=== PATIENT | female | born 1945 | race Caucasian/White ===

== ENCOUNTER 2025-02-18 16:39 | Emergency (ER) | payer MEDICARE, BC, SELFPAY ==
[2025-02-18] VITALS (16 sets, daily range): BP systolic 118–143; BP diastolic 61–75; PULSE 64–85; RESP 6–19; TEMP 36.1; O2SAT 91–99; BMI 22.7
--- OUTSIDE RECORDS SUMMARY | 2025-02-18 16:41 | XMS_ITS | Clinical Summary ---
Author Organization [facility] Address [address] [place] [address] Care Team Providers Care Urban Gardening Specialist Name Role Phone Mercedes Waller MD Primary Care Provider [phone] Allergies Active Allergy Reactions Criticality Noted Date Comments Fluticasone-Salmeterol Cough Fluticasone-Salmeterol Other (See Comments) 06/2010 No reaction listed in [employer]ner. Risedronate 09/10/2015 Other reaction(s): Other (see comments) No reaction listed in [employer]ner. Salmeterol 01/22/2010 Other reaction(s): Other (see comments) No reaction listed in [employer]ner. Serevent Cough Sulfa Antibiotics 08/20/2009 Other reaction(s): Headache Medications methylphenidate ER (CONCERTA) 18 MG CR tablet 12/12/2012 Act jas fluticasone (VERAMYST) 27.5 MCG/SPRAY spray 08/14/2013 Act jas methylphenidate (RITALIN) 10 MG tablet 12/12/2012 Active levothyroxine (SYNTHROID) 75 MCG tablet 02/12/2016 Active budesonide (PULMICORT FLEXHALER) 180 MCG/ACT inhaler Inhale 2 puffs into the lungs 11/02/2017 Active buPROPion (WELLBUTRIN SR) 100 MG 12 hr tablet Take 100 mg by mouth 11/02/2017 Active Cholecalciferol (VITAMIN D) 2000 units tablet Take 1 tablet by mouth 02/17/2010 Active fluticasone (FLONASE) 50 MCG/ACT spray [place] 1 spray in nostril 11/02/2017 Active melatonin 5 MG tablet Take 1 tablet by mouth 11/01/2016 Active methylphenidate (RITALIN LA) 20 MG CP24 Take 20 mg by mouth 11/02/2017 Active Calcium Carbonate-Vitam in D (CALCIUM 500 + D PO) Active Active Problems Problem Noted Date Diagnosed Date Hypothyroidism 11/04/2017 Hyperlipidemia 11/04/2017 Mass of breast 08/24/2012 Overview (01/29/2018): bx with fat necrosis Gastro-esophageal reflux disease without esophag itis 06/18/2012 Overactive child 06/11/2011 Overview (01/29/2018): Overview: ADHD Asthma 06/09/2011 Overview (01/29/2018): Overview: Asthma, Unspecified Postnasal drip 06/09/2011 Family History Medical History Relation Comments Arrhythmia Father Cerebrovascular Disease Father Dementia Father Heart Failure Father Depression Mother Coronary Artery Disease Paternal Grandfather Relation Status Comments Father Mother Paternal Grandfather Social History Tobacco Use Types Packs/Day Years Used Date Smoking Tobacco: Never Smokeless Tobacco: Never Comments Unknown Sex and Gender Information Value Date Recorded Sex Assigned at Not on file 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 Gender Identity Not on file Sexual Orientation Not on file Last Filed Vital Signs Vital Sign Reading Time Taken Comments Blood Pressure 124/76 01/29/2018 2:04 PM CDT Pulse 61 01/29/2018 2:04 PM CDT Temperature - - Respiratory Rate 16 01/29/2018 2:04 PM CDT Oxygen Saturation 95% 01/29/2018 2:04 PM CDT ra Inhaled Oxygen Concentration - - Weight - - Height - - Body Mass Index - - Plan of Treatment Upcoming Encounters Date Type Department Care Team (Late st Contact Info) Description 02/24/2025 1:45 PM CDT Ancillary Procedure [facility] [address] [place] [address] Non- Credentialed Provider, Radiology Health Maintenance Due Date Last Done Comments ADVANCE CARE PLANNING 1945 ANNUAL REVIEW OF HM ORDERS 1945 DIABETES SCREENING 1945 LIPID 1945 TSH W/FREE T4 REFLEX 1945 HEPATITIS C SCREENING 10/28/1963 FALL RISK ASSESSMENT 2010 ZOSTER VACCINE (2 of 3) 08/04/2011 06/09/2011 DEXA 08/16/2019 08/16/2004 RSV VACCINE (1 - 1-dose 75+ series) 2020 COVID-19 VACCINE (5 - season) 2024 07/11/2023, 06/11/2021, 11/03/2020, Additional history exists PHQ-2 (once per calendar year) 2024 DTAP/TDAP/TD VACCINE (2 - Td or Tdap) 11/12/2024 11/12/2014, 11/17/2004 INFLUENZA VACCINE (#1) 2025 PNEUMOCOCCAL VACCINE 50+ YEARS Completed 04/09/2015, 06/18/2012 MAMMO SCREENING Discontinued 11/27/2018, 10/13, 03/18/2016, Additional history exists HPV VACCINE Aged Out No longer eligi ble based on patient's age to complete this topic MENINGITIS VACCINE Aged Out No longer eligible based on patient's age to complete this topic Procedures Procedure Name Priority Date/Time Associated Diagnosis Comments MA SCREENING BILATERAL W/ TRAVIS Routine 11/27/2018 3:36 PM CDT Screening breast examination C DEXA, BONE DENSITY, AXIAL SKEL Routine 08/16/2004 1:12 PM HAND CROWN POUNCER from Last 3 Months or Most Recently Relevant to Health Maintenance Results * MA Screen Bilateral w/Travis (11/27/2018 3:36 PM CDT) Anatomical Region Laterality Modality Breast Bilateral Mammography Impressions 11/28/2018 4:27 PM CDT IMPRESSION: BI-RADS CATEGORY: 1 - NEGATIVE. RECOMMENDED FOLLOW-UP: Annual Mammography Results to be sent to the patient. I have personally reviewed the examination and initial interpretation and I agree with the findings. GISELA FERNANDES MD Narrative 11/28/2018 4:27 PM CDT Examination: Bilateral digital screening mammography and bilateral digital tomosynthesis with computer aided detection. Comparison: 11/02/2017, 03/18/2016, 08/18/2014, 04/23/2012, and 92,011. History/family history: No symptoms, routine screening. Patient's grandmother diagnosed with breast cancer age 50. Prior left breast biopsy. TECHNIQUE: Tomosynthesis BREAST DENSITY: Scattered fibroglandular densities. COMMENTS: No significant change. Left breast biopsy clip. Procedure Note Gisela Fernandes MD - 11/28/2018 Examination: Bilateral digital screening mammography and bilateral digital tomosynthesis with computer aided detection. Comparison: 11/02/2017, 03/18/2016, 08/18/2014, 04/23/2012, and 92,011. History/family history: No symptoms, routine screening. Patient's grandmother diagnosed with breast cancer age 50. Prior left breast biopsy. TECHNIQUE: Tomosynthesis BREAST DENSITY: Scattered fibroglandular densities. COMMENTS: No significant change. Left breast biopsy clip. IMPRESSION: BI-RADS CATEGORY: 1 - NEGATIVE. RECOMMENDED FOLLOW-UP: Annual Mammography Results to be sent to the patient. I have personally reviewed the examination and initial interpretation and I agree with the findings. GISELA FERNANDES MD [facility] IMG MAMMOGRAPHY ORDERABLES Final Result * DEXA, BONE DENSITY, AXIAL SKEL (08/16/2004 1:12 PM HAND CROWN POUNCER) Anatomical Region Laterality Modality Other 08/16/2004 1:12 PM HAND CROWN POUNCER Impressions 08/21/2004 8:26 PM HAND CROWN POUNCER copy of actual paper images and tabulated data to be forwarded to Dr. Horton , along with this dictated report. BONE DENSITOMETRY REPORT(See PACS viewer for DXA images and tabulated data). Densitometer make and model: [employer]. Comparison: None provided . Technical quality: Satisfactory . Possibility of 6 lumbar vertebral bodies. Different sizes of the right and left greater trochanters might explain to difference in T-scores at these 2 sites. Regions scanned: PA L1-L4 spine, bilateral total hips, femoral necks, greater trochanters Patient weight: 153 lbs. Date: 08/16/04 Region: PA L1-L4 spine , BMD: 1.047 gm/cm2, T-score: -1.1 , Z-score: -0.2 . Region: Left femoral neck, BMD: 0.972 gm/cm2, T-score: -0.5 , Z-score: 0.7 . Region: Left greater trochanter, BMD: 0.621 gm/cm2, T-score: -2.3 , Z-score: -1.4 . Region: Left total hip, BMD: 0.932 gm/cm2, T-score: -0.6 , Z-score: 0.1 . Region: Right femoral neck, BMD: 0.937 gm/cm2, T-score: -0.8 ,Z-score: 0.4 . Region: Right greater trochanter, BMD: 0.718 gm/cm2, T-score: -1.3 , Z-score: -0.4 . Region: Right total hip, BMD: 0.949 gm/cm2, T-score: -0.5 , Z-score: 0.2 . Dual energy xray absorptiometry was performed on this 58 year old female, stated to be 10 years postmenopausal, to have a family history of osteoporosis and fractures, to have a personal history of left forearm fracture , to be medicated with calcium, vitamin D, previously hormone replacement, steroid inhaler . Conclusions: 1. Based on the most negative and valid T-score of -2.3 at the level of the left greater trochanter , according to WHO criteria, this individual has osteopenia . 2. The risk of osteoporotic fracture increases approximately 2-fold for each 1.0 SD decrease in T-score. Low bone density is not the only risk factor for fracture; also consider factors such as patient's age, risk of falling, risk of injury, previous osteoporotic fracture, family history of osteoporosis, etc. 3. Suggestion for investigation is to consider plain xray of the lumbar spine to confirm the number of lumbar vertebral bodies. Raul London MD, CCD Suspect Artistpolice dispatcher Section of Rheumatic and Autoimmune Diseases [facility] [phone] * WHO categories: T-score > -1.0 = normal T-score -1.0 to -2.5 = osteopenia T-score < -2.5 = osteoporosis. NOF Physician's Guideline Website address: www.nof.org. [place] [employer] Recommendations for the Prevention and Treatment of Glucocorticoid-induced Osteoporosis: 2001 update in Arthritis and Rheumatism February 2001 edition(vol 44, issue 7) pp 5970-8014. ISCD position statements: www.iscd.org. Implementation of suggestions is at the discretion of the ordering provider. Clinical correlation is recommended. Bone density results acquired from different machines at different facilities, even if of the same make and model, are not directly comparable. Without accompanying images, determination of technical similarity and positioning differences are not possible. (updated 07/03/04) Niurka Horton MD SPECIAL IMAGING STUDIES Edit ed from Last 3 Months or Most Recently Relevant to Health Maintenance Insurance MEDICARE [facility] MEDICARE SUPPLEMENT MEDICARE [place] MEDICARE SUPPLEMENT Care Teams Urban Gardening Specialist Relationship Specialty Start Date End Date Mercedes Waller MD [address] [address] PCP - General 04/20/11
--- OUTSIDE RECORDS SUMMARY | 2025-02-18 16:41 | XMS_ITS | Clinical Summary ---
Author Organization [facility] Address [address] [place] [address] Care Team Providers Care Ophthalmic Assistant Name Role Phone Jennifer Edwards MD Primary Care Provider [phone] Allergies Active Allergy Reactions Criticality Noted Date Comments L-Desoxyephedrine 08/20/2009 Any inhalers Sulfa (Sulfonamide Antibiotics) Headache 02/2010 Medications budesonide (PULMICORT) 180 mcg/Inhalation inhaler Inhale 180 mcg by mouth 2 times daily. 1 Inhaler 0 08/20/2009 Active methylphenidate (RITALIN) 10 mg tablet Take 0.5 tablets by mouth 2 times daily. 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 Gender Identity Not on file Sexual Orientation Not on file Obstetrics History Last Filed Vital Signs Vital Sign Reading Time Taken Comments Blood Pressure 100/66 05/26/2014 8:29 AM CDT Pulse 66 05/26/2014 8:29 AM CDT Temperature 36.4 C (97.5 F) 05/26/2014 8:29 AM CDT Respiratory Rate 12 05/26/2014 8:29 AM CDT Oxygen Saturation 96% 05/26/2014 8:29 AM CDT Inhaled Oxygen Concentration - - Weight 61.7 kg (136 lb) 05/26/2014 8:29 AM CDT Height 154.3 cm (5' 0.75) 05/26/2014 8:29 AM CD T Body Mass Index 25.91 05/26/2014 8:29 AM CDT Plan of Treatment Health Maintenance Due Date Last Done Comments Depression screening for age 12+ 1957 BMI (ht and wt on same day) for age 18+ 10/28/1963 Hepatitis C screening for ag e 18-79 10/28/1963 DEXA/DXA scan for age 65+ 2010 Zoster (shingles) series for age 50+ (2 of 3) 08/04/2011 06/09/2011 Pneumococcal series for age 50+ (2 of 2 - PCV) 06/18/2013 06/18/2012 Tetanus booster 11/17/2014 11/17/2004 RSV vaccine for adults or (1 - 1-dose 75+ series) 2020 COVID-19 vaccine series (3 - 2023-25 season) 2024 11/03/2020, 10/13/2020 Influenza Vaccine (#1) 2025 Hepatitis B series for 19+ Aged Out N o longer eligible based on patient's age to complete this topic Insurance MEDICARE [facility] ONLY [facility] Care Teams Ophthalmic Assistant Relationship Specialty Start Date End Date Jennifer Edwards MD PCP - General Preventive Medicine 03/20/21
[2025-02-18 17:06] LABS: Appearance Urine Clear (Clear)
[2025-02-18 20:17] LABS: Lactate* 0.8 mmol/L (0.5-1.9)
[2025-02-18 20:36] LABS: Hematocrit 39.9 % (33.0-51.0); Hemoglobin* 13.1 gm/dL (12.0-16.0); Immature Granulocytes Abs Auto 0.01 K/uL (0.00-0.30); Immature Granulocytes Pct Auto 0.2 %; Lymphocytes Absolute Auto 1.07 K/uL (0.90-2.90); Mean Corpuscular HGB Conc 33 gm/dL (32-36); Mean Corpuscular Hemoglobin 31 pg (26-34); Mean Corpuscular Volume 96 fL (80-100); RDW Coefficient of Variation % 13.8 % (11.5-15.5); Red Blood Count 4.18 m/uL (4.00-5.20); White Blood Count* 5.21 K/uL (4.50-11.00)
[2025-02-18 20:37] LABS: Chloride* 106 mmol/L (96-114); Slide Review Reflex No; Sodium* 138 mmol/L (135-149)
[2025-02-18 20:38] LABS: Potassium* 4.1 mmol/L (3.6-5.1)
[2025-02-18 20:40] LABS: Blood Urea Nitrogen* 21 mg/dL (7-30); Creatinine* 0.7 mg/dL (0.5-1.5); Est. Creatinine Clearance* 34.42; Estimated Glomerular Filt Rate 88 ml/min
[2025-02-18 20:41] LABS: Anion Gap 5 mEq/L (7-15); Calcium* 9.1 mg/dL (8.4-10.6); Carbon Dioxide* 27 mmol/L (20-32); Glucose* 74 mg/dL (60-115)
--- NOTE | 2025-02-18 21:11 | ED.GENADULT ---
HPI - General Adult General Chief complaint: Dizziness/Vertigo Stated complaint: Low blood pressure, light headed Time Seen by Provider: 02/18/25 18:44 History of Present Illness HPI narrative: 79 yo female with a past medical history of hypothyroidism, generally very healthy presents to the ER today with lightheadedness. She has been healthy and well lately but has noted that she is under lot of stress. 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 She lives been healthy. No recent illness or fever. No cough. No shortness of breath. No vomiting or diarrhea. Generally normal appetite. She thinks she has been drinking plenty of fluids. Beginning after lunch today when she got up out of a chair she has been started feeling lightheadedness. She says she just feels a little bit off balance and like she might pass out when she stands up. She feels fine when she is sitting down. She does not feel an unusual sensation of movement or spinning like vertigo. No other symptoms this afternoon. No fever. No headache. No blurry vision. No focal numbness or weakness in her arms or legs. No chest pain. No palpitations. No cough. No abdominal pain. Bowel movements have been recently light brown. No black or bloody stools. Urination has been normal. She does recall that some years ago she had a really severe urinary tract infection that manifested as lightheadedness. She came to the ER to see if she had a UTI. Related Data Home Medications ?Medication ?Instructions ?Recorded ?Confirmed levothyroxine 50 mcg tablet mcg PO 02/18/25 (Synthroid) levothyroxine 75 mcg tablet mcg PO 02/18/25 (Synthroid) methylphenidate HCl 20 mg biphasic 20 mg PO DAILY 02/18/25 02/18/25 50-50 capsule,extended release methylphenidate HCl 5 mg tablet 5 mg PO BID 02/18/25 02/18/25 Allergies Allergy/AdvReac Type Severity Reaction Status Date / Time Sulfa (Sulfonamide Allergy Unknown Verified 02/18/25 16:46 Antibiotics) [facility] Social History Smoking Status: Never smoker Do you use any of these nicotine containing products: None Second hand tobacco smoke exposure: No How often do you have a drink containing alcohol: never How often do you have six or more drinks on one occasion: Never AUDIT-C Alcohol total score: 0 Non-prescribed substance use: denies use service: No Exam Narrative: Exam Narrative: Constitutional: Appears well-developed and well-nourished. Alert. Conversant. Non toxic. HENT: Head: Atraumatic. Nose: Nose normal. Mouth/Throat: Oral mucosa is clear and moist. no trismus. Pharynx normal. Tonsils symmetric. No tonsillar enlargement, erythema, or exudate. Eyes: Conjunctivae normal. EOM normal. Pupils equal, round, and reactive to light. No scleral icterus. Neck: Normal range of motion. Neck supple. No tracheal deviation present. Cardiovascular: Normal rate, regular rhythm. No gallop. No friction rub. No murmur heard. Symmetric radial artery pulses Pulmonary/Chest: Effort normal. No stridor. No respiratory distress. No wheezes. No rales. No rhonchi . No tenderness. Abdominal: Soft. Bowel sounds normal. No distension. No mass. No tenderness. No rebound. No guarding. Musculoskeletal: RUE: Normal range of motion. No tenderness. No deformity LUE: Normal range of motion. No tenderness. No deformity RLE: Normal range of motion. No edema. No tenderness. No deformity LLE: Normal range of motion. No edema. No tenderness. No deformity Neurological: Mental status normal. Attention normal. Alert and oriented x3. GCS 15. Memory normal. Speech fluent. Cognition normal. Cranial Nerves intact II-XII except I did not formally test gag or visual acuity. EOMI. Palate elevates symmetrically and tongue protrudes in the midline. Strength: 5/5 trapezius on the right and left 5/5 deltoid on the right and left 5/5 biceps on the right and left 5/5 triceps on the right and left 5/5 detector car operator on the right and left 5/5 thumb opposition on the right and left 5/5 finger abduction on the right and left 5/5 hip flexors (L3) on the right and left 5/5 quadriceps (L4) on the right and left 5/5 tibialis anterior on the right and left 5/5 EHL (L5) on the right and left 5/5 gastrocnemius (S1) on the right and left 5/5 hamstring on the right and left Sensation intact to light touch in both upper extremities (C4-T1) Sensation intact to light touch in Both lower extremities (L4-S1). Coordination normal. Gait normal. Skin: Skin is warm and dry. No rash noted. No pallor. Normal capillary refill. Psychiatric: Normal mood. Normal affect. Const: Vital Signs, click to edit/add: Vital Signs - 24 hr 02/18/25 16:42 02/18/25 19:28 02/18/25 19:29 Temperature 97.0 F L Pulse Rate 64 65 Pulse Rate [Pulse Oximeter] 85 Respiratory Rate 16 19 15 Blood Pressure 140/62 H Blood Pressure [Ri ght Upper Arm] 118/75 Pulse Oximetry 98 91 97 Oxygen Delivery Me thod Room Air 02/18/25 19:30 02/18/25 19:45 02/18/25 20:00 Temperature Pulse Rate 68 68 68 Pulse Rate [Pulse Oximeter] Respiratory Rate 17 11 L 10 L Blood Pressure Blood Pressure [Ri ght Upper Arm] Pulse Oximetry 96 99 93 Oxygen Delivery Me thod 02/18/25 20:15 02/18/25 20:29 02/18/25 20:30 Temperature Pulse Rate 68 72 71 Pulse Rate [Pulse Oximeter] Respiratory Rate 10 L 14 18 Blood Pressure 141/66 H Blood Pressure [Ri ght Upper Arm] Pulse Oximetry 95 99 99 Oxygen Delivery Me thod 02/18/25 20:32 02/18/25 20:37 02/18/25 20:45 Temperature Pulse Rate 72 72 Pulse Rate [Pulse Oximeter] 71 Respiratory Rate 18 19 14 Blood Pressure 143/67 H Blood Pressure [Ri ght Upper Arm] 143/67 H Pulse Oximetry 98 99 97 Oxygen Delivery Me thod Room Air 02/18/25 21:00 02/18/25 21:02 02/18/25 21:15 Temperature Pulse Rate 75 78 75 Pulse Rate [Pulse Oximeter] Respiratory Rate 10 L 18 6 L Blood Pressure 141/67 H Blood Pressure [Ri ght Upper Arm] Pulse Oximetry 98 98 98 Oxygen Delivery Me od Room Air Course Vital Signs Vital signs: Initial Vital Signs Temperature 97.0 F L 02/18/25 16:42 Temperature Source Temporal Artery Scan 02/18/25 16:42 Pulse Rate 85 02/18/25 16:42 Respiratory Rate 16 02/18/25 16:42 Blood Pressure 118/75 02/18/25 16:42 Blood Pressure Mean 89 02/18/25 16:42 Blood Pressure Position Sitting 02/18/25 16:42 Pulse Oximetry 98 02/18/25 16:42 Oxygen Delivery Method Room Air 02/18/25 16:42 Vital Signs Temperature 97.0 F L 02/18/25 16:42 Pulse Rate 85 02/18/25 16:42 Respiratory Rate 16 02/18/25 16:42 Blood Pressure 118/75 02/18/25 16:42 Pulse Oximetry 98 02/18/25 16:42 Oxygen Delivery Method Room Air 02/18/25 16:42 Temperature 97.0 F L 02/18/25 16:42 Pulse Rate 75 02/18/25 21:15 Respiratory Rate 6 L 02/18/25 21:15 Blood Pressure 141/67 H 02/18/25 21:02 Pulse Oximetry 98 02/18/25 21:15 Oxygen Delivery Method Room Air 02/18/25 21:00 Medications Administered Medications: Discontinued Medications Generic Name Dose Route Start Last Admin Trade Name Freq PRN Reason Stop Dose Admin Sodium Chloride 1,000 mls @ 1,000 mls/hr 02/18/25 19:15 02/18/25 20:37 0.9 % Sodium Chloride 1000 Ml IV 02/18/25 20:14 1,000 mls/hr .Q1H REYES Administration Medical Decision Making MDM Narrative Medical decision making narrative: Very pleasant 79-year-old female presenting to the ER today by private car from home with her sister for evaluation of lightheadedness. She describes lightheadedness that began this afternoon and is only associated with standing up. It is gone when she is sitting or laying down. 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 Differential for her lightness is broad. She is concerned that she could have a UTI because she has had 1 years ago that did not manifest with any of the typical UTI symptoms. Urinalysis obtained here in the ER is very normal. Other lab workup shows normal electrolytes and kidney function. Normal blood sugar. She is not anemic. White count is normal. Screening EKG shows normal sinus rhythm without ischemia. Screening troponin is undetectable. She is not having any chest pain or shortness of breath or other typical anginal symptoms. I do not think she needs to be admitted for serial troponins. She is not having any abdominal pain to raise concern for intra-abdominal infection. No abdominal mass to raise concern for rupturing AAA. No evidence for cellulitis on her skin exam. Lung sounds are clear. No recent cough or shortness of breath. At this point I do not think she needs chest x-ray. The patient received 1 L of IV saline here in the ER with resolution of her lightheadedness. It is possible that her lightheadedness could be related to dehydration. Discussed the findings with the patient and her sister. At this point I think she is safe for outpatient management and follow-up. Precautions for return to the ER with any recurring lightheadedness or new symptoms were discussed. Questions answered to the best my ability. Lab Data Labs: Lab Results 02/18/25 02/18/25 Range/Units 17:00 20:03 WBC 5.21 (4.50-11.00) K/uL RBC 4.18 (4.00-5.20) m/uL Hgb 13.1 (12.0-16.0) gm/dL Hct 39.9 (33.0-51.0) % MCV 96 (80-100) fL MCH 31 (26-34) pg MCHC 33 (32-36) gm/dL RDW Coeff of Alfonso 13.8 (11.5-15.5) % Plt Count 110 L (140-440) K/uL Neut % (Auto) 68.7 (42.0-72.0) % Lymph % (Auto) 20.5 (20-44) % [place] % (Auto) 8.3 (0.0-11.0) % Eos % (Auto) 1.9 (0.0-7.0) % Baso % (Auto) 0.4 (0.0-3.0) % Neut # (Auto) 3.58 (1.7-7.0) K/uL Lymph # (Auto) 1.07 (0.90-2.90) K/uL [place] # (Auto) 0.40 (0.00-0.90) K/UL Eos # (Auto) 0.10 (0.00-0.50) K/uL Baso # (Auto) 0.02 (0.00-0.30) K/uL Abs Immat Gran (auto) 0.01 (0.00-0.30) K/uL Imm/Tot Granulo (auto) 0.2 % Sodium 138 (135-149) mmol/L Potassium 4.1 (3.6-5.1) mmol/L Chloride 106 (96-114) mmol/L Carbon Dioxide 27 (20-32) mmol/L Anion Gap 5 L (7-15) mEq/L BUN 21 (7-30) mg/dL Creatinine 0.7 (0.5-1.5) mg/dL Estimated Creat Clear 34.42 Estimated GFR 88 ml/min Glucose 74 (60-115) mg/dL Lactate 0.8 (0.5-1.9) mmol/L Calcium 9.1 (8.4-10.6) mg/dL Troponin I < 0.01 (0.01-0.04) ng/mL Urine Color Yellow (Yellow) Urine Appearance Clear (Clear) Urine pH 5.5 (5.0-8.5) Ur Specific [place] <= 1.005 (1.000-1.030) Urine Protein Negative (Negative) Urine Glucose (UA) Negative (Negative) Urine Ketones Negative (Negative) Urine Blood Negative (Negative) Urine Nitrite Negative (Negative) Urine Bilirubin Negative (Negative) Urine Urobilinogen 0.2 (0.2-1.0) Ur Leukocyte Esterase Negative (Negative) Urine RBC 0-2 (0-2) Urine WBC 0-2 (0-5) Ur Squamous Epith Cells None (None-Few) Urine Bacteria None (None) ECG Data Attestation: I personally reviewed and interpreted this ECG as follows: Interpretation: Normal sinus rhythm Rate 66 HI interval 144 Normal QRS axis. No pathologic Q-waves. No ST segment elevation or depression. QTC 431 Discharge Plan Discharge Clinical Impression: Lightheadedness Patient Disposition: Home, Self-Care Condition: Stable Instructions: Lightheadedness (ED) Additional Instructions: As we discussed, please come back to the ER right away if you have any more episodes of dizziness or lightheadedness, fainting, or if you have other new symptoms such as chest pain, palpitations, vertigo, headache, vomiting, fever, or any other concerns. Please recheck with your regular doctor within 5-10 days. Prescriptions: No Action methylphenidate HCl 5 mg tablet 5 mg PO BID levothyroxine [Synthroid] 75 mcg tablet PO levothyroxine [Synthroid] 50 mcg tablet PO methylphenidate HCl 20 mg capsule,ER biphasic 50-50 20 mg PO DAILY Follow Up/Referrals: Provider,Not a Local [Primary Care Provider, Family Practice] Stand Alone Forms: [employer] Info Instructions
== END 2025-02-18 22:10 | disposition home or self-care (01) ==
PROVIDERS: Emergency Provider Emergency Medicine
DX: R42 Dizziness and giddiness (principal); E03.9 Hypothyroidism, unspecified; F43.9 Reaction to severe stress, unspecified
CPT/HCPCS: 36415; 80048; 81001; 83605; 84484; 85025; 93005; 96360; 99283; 99284; J7030

== ENCOUNTER 2025-07-22 20:32 | Outpatient (CLI) | payer MEDICARE, BC, SELFPAY | END 2025-07-22 20:33 | disposition home or self-care (01) | LOC: AMB 07-24 18:32 | PROVIDERS: Visit Provider Family Medicine | DX: R09.89 Other specified symptoms and signs involving the circulatory and respiratory systems (principal) | CPT/HCPCS: A0998 ==